=== PATIENT | male | born 1980 | race Caucasian/White ===

== ENCOUNTER 2017-06-28 01:51 | Emergency (ER) | payer OTHER ==
[2017-06-28] MEDS ORDERED: RX INFO: IV CONTRAST WAS GIVEN 1 EACH MISC MISCELLANE PRN (02:09)
[2017-06-28 02:16] VITALS: BP 138/77; PULSE 100; RESP 18; TEMP 99.4
[2017-06-28 02:24] LABS: Glucose,Whole Blood 97 mg/dL (75-99)
[2017-06-28 02:36] LABS: Basophils # (A) 0.1 k/uL (0-0.2); Basophils % (A) 1 %; CH 31.7; CHCM 34.2; Eosinophils # (A) 0.4 k/uL (0-0.7); Eosinophils % (A) 3 %; HCT 48.5 % (39.0-53.0); HDW 2.33; HGB 17.1 gm/dL (13.0-17.5); Luc # (Auto) 0.19; Luc % (Auto) 1; Lymphocytes # (A) 2.8 k/uL (1.0-4.8); Lymphocytes % (A) 20 %; MCH 32.8 pg (25.0-35.0); MCHC 35.3 g/dL (31.0-37.0); MCV 93.1 fL (80.0-100.0); Monocytes # (A) 0.6 k/uL (0-1.0); Monocytes % (A) 4 %; Neutrophils # (A) 9.9 k/uL (1.3-7.7); Neutrophils % (A) 72 %; RBC 5.21 m/uL (4.30-5.90); RDW 12.2 % (11.5-15.5); WBC 13.8 k/uL (3.8-10.6); WBC (Perox) 13.47
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
[2017-06-28 02:44] LABS: Partial Thromboplastin Time 23.8 sec (22.0-30.0)
[2017-06-28] MEDS ORDERED: HYDROmorphone 1 MG/ML 1 ML SYRINGE IVP STA (02:46)
[2017-06-28 02:48] LABS: ALT 28 U/L (21-72); AST 24 U/L (17-59); Alcohol <10 mg/dL; Alkaline Phosphatase 68 U/L (38-126); Amylase 101 U/L (30-110); Anion Gap 12 mmol/L; Blood Urea Nitrogen 14 mg/dL (9-20); Calcium 10.3 mg/dL (8.4-10.2); Carbon Dioxide 25 mmol/L (22-30); Chloride 104 mmol/L (98-107); Glucose 89 mg/dL (74-99); Non-African American GFR(MDRD) >60 (>60 ml/min/1.73 sqM); Potassium 4.2 mmol/L (3.5-5.1); Sodium 141 mmol/L (137-145); Total Bilirubin 2.1 mg/dL (0.2-1.3)
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
[2017-06-28 03:01] LABS: Creatine Kinase 109 U/L (55-170)
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
[2017-06-28 03:14] LABS: Creatine Kinase MB 0.6 ng/mL (0.0-2.4); Troponin I <0.012 ng/mL (0.000-0.034)
[2017-06-28 03:51] LABS: Appearance,Urine Clear (Clear); Bilirubin,Urine Negative (Negative); Glucose,Urine (UA) Negative (Negative); Ketones,Urine Negative (Negative); Leukocyte Esterase,Urine Negative (Negative); Nitrite,Urine Negative (Negative); Protein,Urine Negative (Negative); Specific Gravity,Urine 1.013 (1.001-1.035); UA Billing (MACRO vs. MICRO) CHEM; Urobilinogen,Urine <2.0 mg/dL (<2.0)
[2017-06-28] MEDS ORDERED: traMADol 50 MG STARTER PACK 3 TAB BTL PO STA (03:58)
== END 2017-06-28 04:15 | disposition home or self-care (01) ==
LOC: EC 01:51
DX: S32.029A Unspecified fracture of second lumbar vertebra, initial encounter for closed fracture (principal); T07 Unspecified multiple injuries; F17.200 Nicotine dependence, unspecified, uncomplicated; Z88.0 Allergy status to penicillin; V23.4XXA Motorcycle driver injured in collision with car, pick-up truck or van in traffic accident, initial encounter; Y92.410 Unspecified street and highway as the place of occurrence of the external cause
CPT/HCPCS: 36415; 93005; 86900; 86901; 80053; 82150; 82550; 82553; 83605; 83690; 84484; 85025; 85610; 85730; 86850; 81003; 80306; 80320; 71010; 72170; 74177; 99284; 96374; J1170; Q9967

== ENCOUNTER 2017-07-03 13:54 | Emergency (ER) | payer OTHER ==
[2017-07-03] MEDS ORDERED: SODIUM CHLORIDE 0.9% 1,000 ML IV SCH (16:00)
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
[2017-07-03 16:10] VITALS: RESP 18
[2017-07-03 16:22] LABS: Basophils % (A) 1 %; CH 32.5; CHCM 34.2; Eosinophils # (A) 0.2 k/uL (0-0.7); Eosinophils % (A) 4 %; HCT 50.1 % (39.0-53.0); HDW 2.34; Luc # (Auto) 0.12; Luc % (Auto) 2; Lymphocytes # (A) 1.4 k/uL (1.0-4.8); Lymphocytes % (A) 23 %; MCH 32.3 pg (25.0-35.0); MCHC 33.9 g/dL (31.0-37.0); MCV 95.4 fL (80.0-100.0); Mean Platelet Volume 6.8; Monocytes # (A) 0.4 k/uL (0-1.0); Monocytes % (A) 7 %; Neutrophils # (A) 3.8 k/uL (1.3-7.7); Neutrophils % (A) 63 %; RBC 5.25 m/uL (4.30-5.90); RDW 13.6 % (11.5-15.5); WBC (Perox) 6.08
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
[2017-07-03 16:34] LABS: ALT 22 U/L (21-72); AST 19 U/L (17-59); Alkaline Phosphatase 47 U/L (38-126); Anion Gap 9 mmol/L; Blood Urea Nitrogen 9 mg/dL (9-20); Calcium 9.2 mg/dL (8.4-10.2); Carbon Dioxide 24 mmol/L (22-30); Chloride 108 mmol/L (98-107); Glucose 89 mg/dL (74-99); Non-African American GFR(MDRD) >60 (>60 ml/min/1.73 sqM); Potassium 4.7 mmol/L (3.5-5.1); Sodium 141 mmol/L (137-145); Total Bilirubin 1.9 mg/dL (0.2-1.3); Total Protein 6.9 g/dL (6.3-8.2)
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
[2017-07-03] MEDS ORDERED: methylPREDNISolone SOD SUCCI 125 MG/2 ML VIAL IV STA (18:28)
[2017-07-03] MEDS ORDERED: HYDROmorphone 1 MG/ML 1 ML SYRINGE IVP STA (18:28)
[2017-07-03 18:44] VITALS: BP 123/77; PULSE 75
[2017-07-03 19:02] VITALS: TEMP 98
== END 2017-07-03 19:02 | disposition home or self-care (01) ==
LOC: EC 13:54
DX: F07.81 Postconcussional syndrome (principal); M54.16 Radiculopathy, lumbar region; S30.0XXA Contusion of lower back and pelvis, initial encounter; R74.8 Abnormal levels of other serum enzymes; F17.200 Nicotine dependence, unspecified, uncomplicated; Z88.0 Allergy status to penicillin; X58.XXXA Exposure to other specified factors, initial encounter
CPT/HCPCS: 36415; 80053; 85025; 71020; 72125; 70450; 99284; 96374; 96375; 96361 ×3; J2930; J1170

== ENCOUNTER 2017-07-15 17:37 | Emergency (ER) | payer OTHER ==
[2017-07-15 18:10] VITALS: BP 171/67; RESP 20; TEMP 98.7
[2017-07-15] MEDS ORDERED: HYDROmorphone 1 MG/ML 1 ML SYRINGE IM STA (18:30)
[2017-07-15] MEDS ORDERED: ORPHENADRINE 30 MG/ML 2 ML VIAL IM STA (18:30)
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
[2017-07-15 18:52] VITALS: PULSE 105
== END 2017-07-15 18:52 | disposition home or self-care (01) ==
LOC: EC 17:37
DX: M54.16 Radiculopathy, lumbar region (principal); F17.200 Nicotine dependence, unspecified, uncomplicated; Z88.0 Allergy status to penicillin
CPT/HCPCS: 99283; 96372 ×2; J2360; J1170

== ENCOUNTER → 2017-07-29 | Outpatient (CLI) | payer OTHER ==
--- NOTE | 2017-07-29 19:49 | MR ---
EXAMINATION TYPE: MR lumbar spine wo con DATE OF EXAM: 07/29/2017 4:58 PM COMPARISON: NONE HISTORY: Low back pain Multiplanar, MultiSpin echo imaging of the lumbar spine was performed. Mild superior endplate loss of height involving T12 which is of uncertain age and/or etiology. No nelly dence for bony retropulsion. L1-L2: Normal disc appearance without desiccation. No herniation, protrusion or disc bulging. No ca nal stenosis is present. Foramina are patent bilaterally. L2-L3: Normal disc appearance without desiccation. No herniation, protrusion or disc bulging. No ca nal stenosis is present. Foramina are patent bilaterally. L3-L4: Normal disc appearance without desiccation. No herniation, protrusion or disc bulging. No ca nal stenosis is present. Foramina are patent bilaterally. L4-L5: Mild disc desiccation. Mild right paracentral disc protrusion. No evidence for central stenosi s or lateral recess stenosis. Mild right foraminal encroachment. L5-S1: Normal disc appearance without desiccation. No herniation, protrusion or disc bulging. No ca nal stenosis is present. Foramina are patent bilaterally. Lumbar segments are intact. No paraspinal masses are identified. Conus medullaris has a normal appe arance. IMPRESSION: 1. Degenerative disc disease and mild disc protrusion at L4-5. 2. Mild superior endplate loss of height involving T12 which is of uncertain age and/or etiology.
== END | disposition home or self-care (01) ==
LOC: RADMRIMAIN 15:57
PROVIDERS: ATTEND Orthopaedic Surgery Orthopaedic Surgery of the Spine
DX: M51.26 Other intervertebral disc displacement, lumbar region (principal); M51.36 Other intervertebral disc degeneration, lumbar region; S22.080A Wedge compression fracture of T11-T12 vertebra, initial encounter for closed fracture; G89.11 Acute pain due to trauma; R29.890 Loss of height
CPT/HCPCS: 72148